=== PATIENT | male | born 2000 | race Caucasian/White ===

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

== ENCOUNTER 2021-07-03 15:18 | Emergency (ER) | payer BC, OTHER ==
[~2021-07-03] VITALS: Ht 175.3 cm; Wt 63.9 kg
[2021-07-03 15:37] VITALS: BP 120/78
[2021-07-03] MEDS ORDERED: LIDOcaine/epinephrine/tetracaine TOPICAL sol 3 ML syringe TOP ONE (16:00)
== END 2021-07-03 17:48 | disposition home or self-care (01) ==
LOC: ER 15:19
DX: S01.01XA Laceration without foreign body of scalp, initial encounter (principal); Z88.2 Allergy status to sulfonamides; W22.8XXA Striking against or struck by other objects, initial encounter; Y93.89 Activity, other specified; Y92.89 Other specified places as the place of occurrence of the external cause; Y99.8 Other external cause status
CPT/HCPCS: 12001; 70450; 99284; J3490

== ENCOUNTER 2024-10-16 14:01 | Outpatient (CLI) | payer BC ==
[2024-10-16 14:37] LABS: BASOPHILS # (AUTO) 0.1 X10'3 (0-0.2); EOSINOPHILS % (AUTO) 0.4 % (0-6); HEMATOCRIT 49.9 % (42.0-52.0); HEMOGLOBIN 17.5 g/dl (14.0-17.9); LYMPHOCYTES % (AUTO) 25.8 % (21-51); MEAN CORPUSCULAR HEMOGLOBIN 32.3 PG (27.0-31.0); MEAN CORPUSCULAR VOLUME 92.1 FL (78-98); MEAN PLATELET VOLUME 6.2 FL (7.4-10.4); MONOCYTES # (AUTO) 0.8 X10'3 (0-0.9); MONOCYTES % (AUTO) 10.5 % (2-12); NEUTROPHILS # (AUTO) 4.9 X10'3 (1.8-7.7); NEUTROPHILS % (AUTO) 62.3 % (42-75); PLATELET COUNT 353 X10'3 (140-440); RED BLOOD COUNT 5.41 X10'6 (4.70-6.10); RED CELL DISTRIBUTION WIDTH 12.7 % (11.5-14.5); WHITE BLOOD COUNT 7.8 X10'3 (4.5-11.0)
[2024-10-16 15:08] LABS: ALANINE AMINOTRANSFERASE 19 U/L (12-78); ALBUMIN 4.4 G/DL (3.4-5.0); ALBUMIN/GLOBULIN RATIO 1.2 (1.1-1.5); ALKALINE PHOSPHATASE 54 IU/L (46-116); ANION GAP 11 (8-16); ASPARTATE AMINO TRANSFERASE 12 U/L (10-37); BILIRUBIN,TOTAL 0.8 MG/DL (0.1-1.0); BLOOD UREA NITROGEN 8 MG/DL (7-18); CALCIUM 9.2 MG/DL (8.5-10.1); CHLORIDE 103 MMOL/L (99-107); CREATININE 0.57 MG/DL (0.60-1.10); GLUCOSE 75 MG/DL (70-104); POTASSIUM 3.9 MMOL/L (3.5-5.1); SODIUM 143 MMOL/L (135-145); TOTAL CARBON DIOXIDE 28.9 MMOL/L (24-32); TOTAL PROTEIN 8.2 G/DL (6.4-8.2); VALPROATE 73 UG/ML (50-100); eGFR > 90 ML/MIN
== END 2024-10-16 23:59 | disposition home or self-care (01) ==
LOC: LAB 14:01
PROVIDERS: ATTEND Psychiatry & Neurology Neurology
DX: G40.319 Generalized idiopathic epilepsy and epileptic syndromes, intractable, without status epilepticus (principal); Z51.81 Encounter for therapeutic drug level monitoring
CPT/HCPCS: 36415; 80053; 80164; 82542; 85025

== ENCOUNTER 2025-04-27 15:12 | Outpatient (CLI) | payer BC ==
--- NOTE | 2025-04-28 04:34 | RADIOLOGY REPORT ---
CLINICAL INDICATION: PAIN IN R KNEE, LOCALIZED SWELLING, MASS AND LUMP, UNSPECIFIED TECHNIQUE: Multiplanar, multisequence MRI of the right lower extremity from the mid thigh to the mid calf. The contralateral ledge is included on the large [id number] images. Contrast: None. COMPARISON: None FINDINGS: Joint space and synovium: There is small knee joint effusion. There is no synovitis. No Beatty's cyst. Bones and articular cartilage: There is no evidence of acute fracture or bone marrow edema. The alignment is normal. The articular cartilage is preserved in the patellofemoral, medial or lateral tibiofemoral compartment. Menisci: The medial and lateral meniscus appear to be grossly intact although evaluation is limited by large [id number]-bv-[id number] imaging. Tendons and ligaments: The tendons in the posterior knee are intact. The extensor mechanism is intact. The anterior cruciate and posterior cruciate ligament appear to be grossly intact though evaluation is limited by large pdcly-wo-bepy artery. The medial collateral ligament and the lateral col lateral ligament stabilizing complex are intact. Muscles: There is faint edema in the soleus muscle. Other: There is fluid in the deep infrapatellar bursa. Infrapatellar soft tissue edema. Left leg: Mild edema noted in the region of the soleus muscle on the large [id number] images. Otherwise no bone or soft tissue signal abnormality. IMPRESSION: 1. No evidence of acute fracture or bone marrow edema in the right lower extremity. 2. Small knee joint effusion. 3. Faint edema in the right soleus muscle. 4. Mild edema in the left soleus muscle evaluated only on the large bosiw-et-wkrj images.
== END 2025-04-27 23:59 | disposition home or self-care (01) ==
LOC: MRI02 15:12
PROVIDERS: ATTEND Nurse Practitioner Family
DX: M25.461 Effusion, right knee (principal); M25.561 Pain in right knee; R20.2 Paresthesia of skin; R60.0 Localized edema
CPT/HCPCS: 73718